=== PATIENT | male | born 1980 | race Caucasian/White ===

== ENCOUNTER 2018-07-24 18:44 | Emergency (ER) | payer MEDICAID ==
[~2018-07-24] VITALS: Ht 180.3 cm; Wt 86.4 kg
[~2018-07-24 18:44] MED LIST: OXYC80 PO
[2018-07-24] MEDS ORDERED: MUPIROCIN CALCIUM 2% 22 GM OINTMENT TP ONE (21:30)
[2018-07-24] MEDS ORDERED: ACYCLOVIR 200 MG CAPSULE PO ONE (21:30)
[2018-07-24 22:23] VITALS: BP 120/35
== END 2018-07-24 22:33 | disposition home or self-care (01) ==
LOC: EMS 18:44
DX: B00.9 Herpesviral infection, unspecified (principal); F17.210 Nicotine dependence, cigarettes, uncomplicated; F19.90 Other psychoactive substance use, unspecified, uncomplicated
CPT/HCPCS: 99406